=== PATIENT | male | born 1990 | race African-American/Black ===

== ENCOUNTER 2024-10-04 01:14 | Emergency (ER) | payer MEDICAID ==
[~2024-10-04] VITALS: Ht 177.8 cm; Wt 59.0 kg
--- NOTE | 2024-10-04 03:12 | DVH ---
CHEST RADIOGRAPH Indication: SOB Technique: Single frontal view of the chest was obtained Comparison: None IMPRESSION: Heart appears normal in size. The lungs appear clear without focal airspace opacity, effusion, or pn eumothorax
--- NOTE | 2024-10-04 03:15 | ED.PDOC ---
SOB-HPI HPI Comments PT C/O SOB X 3 DAYS ACCOMPANIED BY 8/10 CHEST PAIN/PRESSURE. PT A&OX4, VSS, RR EVEN AND UNLABORED ON RA. Chief Complaint: Shortness of Breath Time Seen by MD: 02:04 Reviewed notes: Nurses Notes, Medications, Allergies Information Source: Patient Mode of Arrival: Ambulatory Past Medical History PAST MEDICAL HISTORY: Denies Surgical History: Denies all surgeries Family History Family History: Reviewed,noncontributory to illness Social History Smoker: Other (VAPE ) Alcohol: Denies ETOH Use Drugs: Denies Drug Use Constitutional: denies: chills, diaphoresis, fatigue, fever, malaise, sweats, weakness, others EENTM: denies: blurred vision, double vision, ear bleeding, ear discharge, ear drainage, ear pain, ear ringing, eye pain, eye redness, hearing loss, mouth pain, mouth swelling, nasal discharge, nose bleeding, nose congestion, nose pain, photophobia, tearing, throat pain, throat swelling, voice changes, others Respiratory: reports: shortness of breath; denies: cough, hemoptysis, orthopnea, SOB at rest, SOB with excertion, stridor, wheezing, others Cardiovascular: reports: chest pain; denies: dizzy spells, diaphoresis, Dyspnea on exertion, edema, irregular heart beat, left arm pain, lightheadedness, palpitations, PND, syncope, others Gastrointestinal: denies: abdomen distended, abdominal pain, blood streaked bowels, constipated, diarrhea, dysphagia, difficulty swallowing, hematemesis, melena, nausea, poor appetite, poor fluid intake, rectal bleeding, rectal pain, vomiting, others Genitourinary: denies: burning, dysuria, flank pain, frequency, hematuria, incontinence, penile discharge, penile sore, pain, testicle pain, testicle swelling, urgency, others Neurological: denies: dizziness, fainting, headache, left sided numbness, left sided weakness, numbness, paresthesia, pre-existing deficit, right sided numbness, right sided weakness, seizure, speech problems, tingling, tremors, weakness, others Musculoskeletal: denies: back pain, gout, joint pain, joint swelling, muscle pain, muscle stiffness, neck pain, others Integumetry: denies: bruises, change in color, change in hair/nails, dryness, laceration, lesions, lumps, rash, wounds, others Allergic/Immunocompromised: denies: Difficulty Healing, Frequent Infections, Hives, Itching, others Hematologic/Lymphatic: denies: anemia, blood clots, easy bleeding, easy bruising, swollen glands, others Endocrine: denies: excessive hunger, excessive sweating, excessive thirst, excessive urination, flushing, intolerance to cold, intolerance to heat, unexplained weight gain, unexplained weight loss, others Psychiatric: denies: anxiety, bipolar disorder, depression, hopeless, panic disorder, schizophrenia, sleepless, suicidal, others Physical Exam General Appearance: No Apparent Distress, Normal HEENT: Normal ENT Inspection, Pharynx Normal, TMs Normal Neck: Full Range of Motion, Non-Tender Respiratory: Lungs Clear, No Respiratory Distress, Normal Breath Sounds Cardiovascular: No Edema, No JVD, No Murmur, No Gallop, Normal Peripheral Pulses, Regular Rate/Rhythm Breast Exam: Deferred Gastrointestinal: No Organomegaly, Non Tender, No Pulsatile Mass, Normal Bowel Sounds, Soft Genitalia: Deferred Pelvic: Deferred Rectal: Deferred Extremities: Normal capillary refill, Normal inspection, Normal range of motion, Non-tender, No pedal edema Musculoskeletal : Apperance: Normal Neurologic: Alert, buttonhole tacker II-XII nml as Tested, No Motor Deficits, Normal Affect, Normal Mood, No Sensory Deficits Cerebellar Function: Normal Reflexes: Normal Skin: Dry, Normal Color, Warm Lymphatic: No Adenopathy Was a procedure done? Was a procedure done?: No Differential Dx Differential Diagnosis: Anxiety, Asthma, Bronchitis, Pneumonia X-Ray, Labs, Meds, VS Vital Signs Date Time Temp Pulse Resp B/P (MAP) Pulse Ox O2 Delivery O2 Flow Rate FiO2 10/04/24 03:40 98.8 102 18 110/80 (90) 98 98.8 10/04/24 03:40 98 Room Air* 0 21 10/04/24 02:30 98.5 94 14 119/84 (96) 94 98.5 10/04/24 01:37 98.8 119 14 140/89 (106) 99 98.8 10/04/24 01:23 104 Current Medications Medications (Trade) Dose Ordered Sig/Lydia Route Start Time Stop Time Status Last Admin Acetaminophen/ Hydrocodone Bitart ([place] 5/325MG Tab) 1 tab ONCE ONCE PO 4/1/25 03:30 10/04/24 03:31 DC 10/04/24 03:49 X-Ray, Labs, Meds, VS Comment Chest x-ray shows no cardiopulmonary findings. Patient given [place] 5 mg for the pain reports improvement requesting discharge at this time. We will script albuterol inhaler and Medrol Dosepaks likely bronchitis. Advised to take medication as prescribed side effects discussed. Advised to quit smoking marijuana and cigarettes and vaping. Advised to follow up with his PCP within 2-3 days as necessary ER return precautions given patient indicates understanding agrees with discharge plan of care. Time of 1ST Reevaluation: 03:15 Reevaluation 1ST: Unchanged Patient Education/Counseling: Diagnosis, Treatment, Prognosis, Need For Follow Up Family Education/Counseling: No Family Present Departure 1 Departure Time of Disposition: 03:25 Impression: Primary Impression: Bronchitis Disposition: 01 HOME / SELF CARE / HOMELESS Condition: Stable e-Prescriptions Methylprednisolone (Medrol Dosepak) 4 Mg Marcus 4 MG PO UD for 6 Days, #21 TAB UAD Prov: MANUEL SOLANO 10/04/24 Albuterol Sulfate (Albuterol Sulfate Hfa) 108 Mcg/Act Aer 108 MCG IN Q4HP PRN for 15 Days, #1 INHALER Inhale 1-2 puffs every 4-6 hours as needed for shortness of breath or wheezing. Prov: MANUEL SOLANO 10/04/24 Discharged With: Self Critical Care Note Critical Care Time?: No Stability Stability form required: No Heart Score Heart Score: Heart Score Response (Comments) Value History N/A 0 EKG N/A 0 Age <45 0 Risk Factors N/A 0 Troponin N/A 0 Total 0 MAUNEL SOLANO Oct 04, 2024 03:15
[2024-10-04] MEDS ORDERED: ALBU108A5 IN (03:28)
[2024-10-04] MEDS ORDERED: METH4PAK PO (03:28)
[2024-10-04 03:40] VITALS: BP 110/80; PULSE 102; RESP 18; TEMP 98.8; O2SAT 98
[2024-10-04] MEDS: HYDROcodone-ACET 5/325MG TAB PO ONE (03:49)
--- NOTE | 2024-10-05 12:33 | ECG ---
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
--- NOTE | 2024-10-06 10:21 | ECG ---
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
== END 2024-10-04 03:51 | disposition home or self-care (01) ==
LOC: ER 01:22
DX: J40 Bronchitis, not specified as acute or chronic (principal); F17.290 Nicotine dependence, other tobacco product, uncomplicated
CPT/HCPCS: 71046; 93005